=== PATIENT | male | born 1990 | race Two or more races ===

== ENCOUNTER 2018-05-05 16:57 | Emergency (ER) | payer OTHER ==
--- NOTE | 2018-05-05 18:03 | EDPHY ---
H & P Time Seen by Provider: 05/05/18 17:57 HPI/ROS: Chief complaint. Headache, nausea vomiting HPI. 27-year-old male presents to emergency department with headache. Symptoms began 2 weeks ago with right-sided neck pain. He thinks he slept wrong. He was seen in the emergency department the next day and they felt he had muscular cause of his pain. He saw his PCP yesterday who recommended Excedrin migraine. He saw his oncologist today who recommended coming to the emergency department for CT. The patient has now had a headache for 5 days. No fever. No head injury. Pain is on the right side of his head. He does have a history of migraines though this is apparently more severe. Patient has lymphoma which is stable as far as he knows. No focal weakness or paresthesias. No chest discomfort or trouble breathing. No abdominal pain. He has had nausea and vomiting. ROS Constitutional. no fever/chills, no weakness Eyes. no problems with vision ENT. no sore throat, no nasal drainage Cardiovascular. no chest pain Respiratory. no shortness of breath, no cough Abdominal. no abdominal pain, no nausea/vomiting, no diarrhea . no problems urinating MS. Right side neck pain Skin. no rash Lymph. no swollen glands Neuro. Headache Past Medical/Surgical History: Lymphoma, back surgery, appendectomy Social History: Single, nonsmoker, no alcohol Smoking Status: Former smoker Physical Exam: General Appearance: Alert well-developed male moderate distress vital signs are stable. He is afebrile Eyes: Pupils equal and round no pallor or injection. ENT, tympanic membranes are normal. Pharynx without injection. Respiratory: There are no retractions, lungs are clear to auscultation. Cardiovascular: Regular rate and rhythm. Gastrointestinal: Abdomen is soft and nontender, no masses, bowel sounds normal. Neurological: Awake and alert, sensory and motor exams grossly normal. Skin: Warm and dry, no rashes. Musculoskeletal: Right-sided tenderness on the neck. No cervical spine tenderness. Extremities symmetrical, full range of motion. Psychiatric: Patient is oriented X 3, there is no agitation. Constitutional: Initial Vital Signs Temperature (C) 36.8 C 05/05/18 17:28 Heart Rate 71 05/05/18 17:28 Respiratory Rate 16 05/05/18 17:28 Blood Pressure 114/65 05/05/18 17:28 O2 Sat (%) 97 05/05/18 17:28 O2 Delivery Mode Nasal Cannula O2 (L/minute) 2 Allergies/Adverse Reactions: No Known Allergies Allergy (Unverified 05/05/18 17:27) Home Medications: Medication Instructions Recorded Compazine 10mg (*) 05/05/18 Excedrin Migraine Geltab 05/05/18 Multivitamin (*) 05/05/18 Medical Decision Making - Diagnostics Imaging Results: Imaging Impressions Head CT 05/05/18 18:16 Impression: 1. Normal CT of the head. Specifically, a headache source is not identified. 2. See above report for additional findings. Results called and discussed with ROXANN DALLAS M.D. on 05/05/2018 at 18:50. Noncontrast head CT is reviewed by me and discussed with Dr. Espinosa is normal Procedures: IV normal saline. Reglan Benadryl Toradol morphine for headache ED Course/Re-evaluation: Re-evaluation 720 pm--patient notes improvement. He is conversational. Medically neurologically intact Re-evaluation again at 7:55 p.m. Again patient is stable and improving. He tells me he feels well enough to go home. Patient and I discussed laboratory evaluation, treatment plan including criteria for return importance of follow-up and further evaluation. He expresses understanding and agreement Differential Diagnosis: I suspect this is migraine and has begun maybe with a right-sided cervical strain. It is nontraumatic. He has no fever. He has a normal head CT as there was some concern about possible metastatic disease or intracranial bleeding as the patient has lymphoma. He has normal labs and is neurologically intact - Data Points Laboratory Results: Laboratory Results 05/05/18 18:05 05/05/18 18:05 05/05/18 05/05/18 18:05 18:05 WBC 9.15 10^3/uL 10^3/uL (3.80-9.50) RBC 5.30 10^6/uL 10^6/uL (4.40-6.38) Hgb 15.6 g/dL g/dL (13.7-17.5) Hct 46.4 % % (40.0-51.0) MCV 87.5 fL fL (81.5-99.8) MCH 29.4 pg pg (27.9-34.1) MCHC 33.6 g/dL g/dL (32.4-36.7) RDW 13.6 % % (11.5-15.2) Plt Count 304 10^3/uL 10^3/uL (150-400) MPV 10.0 fL fL (8.7-11.7) Neut % (Auto) 84.3 % H % (39.3-74.2) Lymph % (Auto) 11.3 % L % (15.0-45.0) Millard % (Auto) 3.7 % L % (4.5-13.0) Eos % (Auto) 0.2 % L % (0.6-7.6) Baso % (Auto) 0.2 % L % (0.3-1.7) Nucleat RBC Rel Count 0.0 % % (0.0-0.2) Absolute Neuts (auto) 7.71 10^3/uL H 10^3/uL (1.70-6.50) Absolute Lymphs (auto) 1.03 10^3/uL 10^3/uL (1.00-3.00) Absolute Monos (auto) 0.34 10^3/uL 10^3/uL (0.30-0.80) Absolute Eos (auto) 0.02 10^3/uL L 10^3/uL (0.03-0.40) Absolute Basos (auto) 0.02 10^3/uL 10^3/uL (0.02-0.10) Absolute Nucleated RBC 0.00 10^3/uL 10^3/uL (0-0.01) Immature Gran % 0.3 % % (0.0-1.1) Immature Gran # 0.03 10^3/uL 10^3/uL (0.00-0.10) Sodium 141 mEq/L mEq/L (135-145) Potassium 4.2 mEq/L mEq/L (3.3-5.0) Chloride 102 mEq/L mEq/L (97-110) Carbon Dioxide 27 mEq/l mEq/l (22-31) Anion Gap 12 mEq/L mEq/L (8-16) BUN 9 mg/dL mg/dL (7-23) Creatinine 0.7 mg/dL mg/dL (0.7-1.3) Estimated GFR > 60 Glucose 91 mg/dL mg/dL (70-100) Calcium 9.5 mg/dL mg/dL (8.5-10.4) Medications Given: Discontinued Medications Dexamethasone (Decadron Injection) 10 mg IVP EDNOW ONE Stop: 05/05/18 18:17 Last Admin: 05/05/18 18:38 Dose: 10 mg Diphenhydramine HCl (Benadryl Injection) 25 mg IVP EDNOW ONE Stop: 05/05/18 18:17 Last Admin: 05/05/18 18:34 Dose: 25 mg Sodium Chloride (Ns) 1,000 mls @ 0 mls/hr IV ONCE ONE; Wide Open PRN Reason: Protocol Stop: 05/05/18 18:17 Last Admin: 05/05/18 18:38 Dose: 1,000 mls Ketorolac Tromethamine (Toradol) 30 mg IVP EDNOW ONE Stop: 05/05/18 18:17 Last Admin: 05/05/18 18:36 Dose: 30 mg Metoclopramide HCl (Reglan Injection) 10 mg IVP EDNOW ONE Stop: 05/05/18 18:17 Last Admin: 05/05/18 18:35 Dose: 10 mg Morphine Sulfate (Morphine) 6 mg IVP EDNOW ONE Stop: 05/05/18 18:17 Last Admin: 05/05/18 18:32 Dose: 6 mg Departure - Departure Disposition: Home, Routine, Self-Care Clinical Impression: Migraine headache Qualifiers: Migraine type: unspecified Status migrainosus presence: with status migrainosus Intractability: not intractable Qualified Code(s): G43.901 - Migraine, unspecified, not intractable, with status migrainosus Condition: Good Instructions: Migraine Headache (ED) Additional Instructions: Continue regular medications. Return for worsening symptoms. Recheck in 1-2 days if not continuing to improve Referrals: AIDEE ANAYA [Primary Care Provider] - 1 day, if not improved
[2018-05-05] MEDS ORDERED: KETOROLAC 30 MG/1 ML SDV IVP ONE (18:16)
[2018-05-05] MEDS ORDERED: METOCLOPRAMIDE 10 MG/2 ML VIAL IVP ONE (18:16)
[2018-05-05] MEDS ORDERED: DEXAMETHASONE 10 MG/ML VIAL IVP ONE (18:16)
[2018-05-05] MEDS ORDERED: NS 1,000 ML IV ONE (18:16)
[2018-05-05 18:24] LABS: PLATELET COUNT 304 10^3/uL (150-400)
[2018-05-05 20:16] VITALS: BP 124/76
== END 2018-05-05 20:15 | disposition home or self-care (01) ==
DX: G43.901 Migraine, unspecified, not intractable, with status migrainosus (principal); E86.9 Volume depletion, unspecified; Z87.891 Personal history of nicotine dependence; Z90.49 Acquired absence of other specified parts of digestive tract
CPT/HCPCS: 96374; J1100; J1200; J1885; J2270; J2765